=== PATIENT | male | born 1965 | race Caucasian/White ===

== ENCOUNTER 2018-03-07 06:43 | Day surgery (SDC) | payer BC ==
[~2018-03-07 06:43] MED LIST: Dextrose 5%-0.45% NaCl 1,000 ML IV SCH; Midazolam 1 MG/ML 2 ML SDV ONE; Sodium Chloride 0.9% 10 ML Syringe FLUSH PRN; fentaNYL 100 MCG/2 ML SDV ONE
[2018-03-07] MEDS ORDERED: fentaNYL 100 MCG/2 ML SDV IV ONE ×3 (06:44→08:22)
[2018-03-07] MEDS ORDERED: Midazolam 1 MG/ML 2 ML SDV IV ONE ×7 (06:44→08:19)
[2018-03-07 11:19] VITALS: BP 130/84
--- NOTE | 2018-03-07 11:26 | OR ---
DATE: 03/07/2018 PROCEDURES: Total colonoscopy, narrow-band imaging, and multiple snare polypectomies. INSTRUMENT USED: CF-H180 AL Olympus video colonoscope. PREMEDICATIONS: Fentanyl 125 mcg intravenous, Versed 4 mg intravenous. The procedure was done under pulse oximetry, BP recording, and travel journalist. INDICATION: The patient with rectal bleeding and recent alteration in bowel habits unexplained. Colonoscopic examination is done for detection of any polypoid lesions and removal, endoscopic hemostasis therapy if needed. DESCRIPTION OF PROCEDURE: Initial rectal exam was unremarkable. Rigid anoscopy showed small internal hemorrhoids without bleeding from them. The colonoscope was passed with ease. Few scattered diverticula were noted in the distal left colon along with deformity. The scope was passed with ease up to the ileocecal area. Photographs were taken of the normal-appearing cecum identified by landmarks of appendiceal orifice and double-bulged ileocecal folds. No bleeding was noted from any of the visualized areas at the commencement of the examination. No stricture. No vascular ectasia. No large isolated ulcerations seen. No evidence of diffuse inflammatory bowel disease in the form of friability, contact bleeding, or ulcerations. Probing the proximal sides of folds and flexures, using adequate distention and clearing up the stool material, withdrawal of the scope was made. In the hepatic flexure area, a 5-mm sized benign-appearing polyp was noted. Photographs were taken. Cold snare polypectomy was done. The tissue was retrieved and sent for histopathology. In the distal descending colon, at around 25 cm proximal to the anal verge, 1-cm sized pedunculated polyp was noted. Photographs were taken. Snare polypectomy was done. The tissue was retrieved and sent for histopathology. Photographs were taken of the polypectomy site. No bleeding was noted from any of the visualized areas at the completion of examination. IMPRESSION: 1. Internal hemorrhoids. 2. Diverticulosis. 3. Colonic polyps. The patient tolerated the procedure well. [facility] /[id number]
== END 2018-03-07 09:55 | disposition home or self-care (01) ==
LOC: DL.ENDO 06:43
PROVIDERS: ATTEND Internal Medicine Gastroenterology
DX: D12.3 Benign neoplasm of transverse colon (principal); D12.4 Benign neoplasm of descending colon; K64.8 Other hemorrhoids; K57.30 Diverticulosis of large intestine without perforation or abscess without bleeding; I10 Essential (primary) hypertension; K21.9 Gastro-esophageal reflux disease without esophagitis; E78.00 Pure hypercholesterolemia, unspecified; E66.09 Other obesity due to excess calories
CPT/HCPCS: 45385; J2250; J3010; J7042